=== PATIENT | male | born 1965 | race Caucasian/White ===

== ENCOUNTER 2017-10-20 08:54 | Emergency (ER) | payer MEDICARE, OTHER ==
[~2017-10-20] VITALS: Ht 175.3 cm; Wt 106.1 kg
--- NOTE | 2017-10-20 09:25 | ED Cardiac General ---
History of Present Illness General Chief Complaint: Cardiac/General Problems Stated Complaint: DEFIBRILLATOR IMPLANT ISSUES Nursing Triage Note: Pt reports his defibrillator has been making an alarming noise for past week. Pt reports defib has not shocked him. Pt also c/o feeling like L hand is "tight" and L arm "falls asleep" when laying on left side. x2 weeks. Source: patient, other Exam Limitations: no limitations History of Present Illness Date Seen by Provider: Oct 20, 2017 Time Seen by Provider: 09:14 Initial Comments Patient presents to the ER by private conveyance with his significant other and a chief complaint for about a week and a half now he's been hearing a digital tone that he just realized days coming from his defibrillator. He says about 2 weeks ago he was seeing his primary care doctor in [place] and they did an EKG and some blood work and everything was okay at that time. He says the defibrillator was put in by Dr. Smith at [facility] and 2011. He has not had a battery change since. He has however been followed by his primary care doctor. For the last week and a half he's had a little bit of swelling in his left hand and numbness when he lays on it goes away when he gets up. He says he had a minute or 2 of pain substernally about 10 days ago. He says he's felt a few shocks around that time but no big ticks from the defibrillator. He denies any palpitations, weakness, sweats, nausea, chills, shortness of breath or cough. Allergies and Home Medications Allergies Coded Allergies: No Known Drug Allergies (Unverified , 10/20/17) Patient Home Medication List Home Medication List Reviewed: Yes Review of Systems Constitutional: No chills, No diaphoresis, No fever EENTM: No Blurred Vision, No Double Vision Respiratory: Denies Cough, Denies Shortness of Air Cardiovascular: See HPI; Denies Chest Pain; Edema (left hand); Denies Irregular Heart Rate, Denies Palpitations, Denies Syncope Gastrointestinal: Denies Abdominal Pain, Denies Constipated, Denies Diarrhea, Denies Nausea Genitourinary: Denies Burning, Denies Discharge, Denies Drainage Musculoskeletal: No back pain, No joint pain Skin: No pruritus, No rash Psychiatric/Neurological: Denies Headache, Denies Numbness; Paresthesia (left hand) Past Knpmjmz-Ludjkn-Cihcre Hx Patient Social History Alcohol Use: Denies Use Recreational Drug Use: No Smoking Status: Never a Smoker Recent Foreign Travel: No Contact w/Someone Who Travel: No Recent Infectious Disease Expo: No Recent Hopitalizations: No Physical Abuse: No Sexual Abuse: No Seasonal Allergies Seasonal Allergies: No Past Medical History Surgeries: Yes Abdominal, Defibrillator, Nose Respiratory: No Cardiac: Yes (heart failure) Hypertension, Irregular Heartbeat Genitourinary: No Gastrointestinal: No Musculoskeletal: No Endocrine: No HEENT: No Cancer: No Psychosocial: No Nursing Suicide Risk Score: 0 Integumentary: No Blood Disorders: No Physical Exam Vital Signs Vital Signs - First Documented 10/20/17 08:58 Temp 96.8 Pulse 64 Resp 18 B/P (MAP) 147/93 (111) Pulse Ox 97 O2 Delivery Room Air Capillary Refill : Less Than 3 Seconds Height, Weight, BMI Height: 5', 9.00" Weight: 234lbs oz, [id number] Method:Stated ,BMI General Appearance: No Apparent Distress, WD/WN HEENT: PERRL/EOMI, Pharynx Normal, Moist Mucous Membranes Neck: Full Range of Motion, Supple Respiratory: Chest Non Tender, No Accessory Muscle Use, No Respiratory Distress Cardiovascular: Regular Rate, Rhythm, No Edema, No JVD, Normal Peripheral Pulses Gastrointestinal: Normal Bowel Sounds, Non Tender, Soft Extremity: Normal Capillary Refill, Normal Inspection, No Pedal Edema Neurologic/Psychiatric: Alert, Oriented x3, No Motor/Sensory Deficits Skin: Normal Color, Warm/Dry Progress/Results/Core Measures Results/Orders Lab Results Laboratory Tests Test 10/20/17 09:27 Range/Units White Blood Count 5.9 4.3-11.0 10^3/uL Red Blood Count 4.40 4.35-5.85 10^6/uL Hemoglobin 13.7 13.3-17.7 G/DL Hematocrit 39 L 40-54 % Mean Corpuscular Volume 89 80-99 FL Mean Corpuscular Hemoglobin 31 25-34 PG Mean Corpuscular Hemoglobin Concent 35 32-36 G/DL Red Cell Distribution Width 13.2 10.0-14.5 % Platelet Count 209 130-400 10^3/uL Mean Platelet Volume 10.2 7.4-10.4 FL Sodium Level 140 135-145 MMOL/L Potassium Level 3.9 3.6-5.0 MMOL/L Chloride Level 107 98-107 MMOL/L Carbon Dioxide Level 22 21-32 MMOL/L Anion Gap 11 5-14 MMOL/L Blood Urea Nitrogen 15 7-18 MG/DL Creatinine 0.87 0.60-1.30 MG/DL Estimat Glomerular Filtration Rate > 60 BUN/Creatinine Ratio 17 Glucose Level 113 H 70-105 MG/DL Calcium Level 8.4 L 8.5-10.1 MG/DL Total Bilirubin 0.7 0.1-1.0 MG/DL Aspartate Amino Transf (AST/SGOT) 20 5-34 U/L Alanine Aminotransferase (ALT/SGPT) 24 0-55 U/L Alkaline Phosphatase 54 40-136 U/L Troponin I < 0.30 <0.30 NG/ML B-Type Natriuretic Peptide 47.4 <100.0 PG/ML Total Protein 7.2 6.4-8.2 GM/DL Albumin 4.0 3.2-4.5 GM/DL My Orders Orders - ANDREA MIGUEL Troponin I (10/20/17 09:19) Ekg Tracing (10/20/17 09:19) Monitor-Rhythm Ecg Trace Only (10/20/17 09:19) Cbc No Diff (10/20/17 09:19) Comprehensive Metabolic Panel (10/20/17 09:19) BNP (10/20/17 09:20) Vital Signs/I&O 10/20/17 08:58 Temp 96.8 Pulse 64 Resp 18 B/P (MAP) 147/93 (111) Pulse Ox 97 O2 Delivery Room Air Blood Pressure Mean: 111 Progress Progress Note #1: Time: 09:23 Progress Note He has a [employer] device. We're going to interrogate the device and then check some basic labs and EKG. We'll get a BNP see if his swelling of the anything to do with heart failure and a troponin. Progress Note #2: Time: 10:15 Progress Note [employer] called us back and told us the patient had no V. fib or sustained V. tach further couple of non-sustained since 2016. Battery is low and needs replace the next few weeks. Initial ECG Impression Date: Oct 20, 2017 Initial ECG Impression Time: 09:27 Initial ECG Rate: 60 Initial ECG Rhythm: Normal Sinus Initial ECG Intervals: QT (488) Initial ECG Impression: Nonspecific Changes (atrial sensed ventricular paced rhythm) Initial ECG Comparisson: No Previous ECG Available Comment No ST elevation or depression Departure Impression Primary Impression: AICD at end of battery life Disposition: 01 HOME, SELF-CARE Condition: Stable Departure-Patient Inst. Decision time for Depature: 10:16 Referrals: NO,LOCAL PHYSICIAN (PCP/Family) Primary Care Physician Patient Instructions: Automatic Cardioverter Defibrillator Implantation (DC) Add. Discharge Instructions: Follow-up with your surveyor oil well directional in the next 1-2 weeks to discuss low battery on your AICD. All discharge instructions reviewed with patient and/or family. Voiced understanding. ANDREA MIGUEL Oct 20, 2017 09:25
[2017-10-20 09:39] LABS: HEMOGLOBIN 13.7 G/DL (13.3-17.7); MEAN PLATELET VOLUME 10.2 FL (7.4-10.4); RED BLOOD COUNT 4.4 10^6/uL (4.35-5.85); RED CELL DISTRIBUTION WIDTH 13.2 % (10.0-14.5); WHITE BLOOD COUNT 5.9 10^3/uL (4.3-11.0)
[2017-10-20 10:00] LABS: ALANINE AMINOTRANSFERASE 24 U/L (0-55); ALKALINE PHOSPHATASE 54 U/L (40-136); BILIRUBIN,TOTAL 0.7 MG/DL (0.1-1.0); BUN/CREATININE RATIO 17; CALCIUM 8.4 MG/DL (8.5-10.1); CARBON DIOXIDE 22 MMOL/L (21-32); CHLORIDE 107 MMOL/L (98-107); CREATININE SERUM 0.87 MG/DL (0.60-1.30); GFR ESTIMATED > 60; GLUCOSE 113 MG/DL (70-105); POTASSIUM 3.9 MMOL/L (3.6-5.0); SODIUM 140 MMOL/L (135-145); TOTAL PROTEIN 7.2 GM/DL (6.4-8.2)
[2017-10-20 10:34] VITALS: BP 160/106
== END 2017-10-20 10:34 | disposition home or self-care (01) ==
LOC: ER 08:58
DX: T82.198A Other mechanical complication of other cardiac electronic device, initial encounter (principal); I10 Essential (primary) hypertension; I25.2 Old myocardial infarction; Z95.810 Presence of automatic (implantable) cardiac defibrillator
CPT/HCPCS: 36415; 80053; 83880; 84484; 85027; 93005; 93041